=== PATIENT | female | born 1935 | race Caucasian/White ===

== ENCOUNTER 2021-09-17 15:32 | Outpatient (CLI) | payer MEDICARE, OTHER | END 2021-09-17 15:33 | disposition home or self-care (01) | LOC: SCSRAD 15:32 | PROVIDERS: ATTEND Family Medicine | DX: M25.561 Pain in right knee (principal); M25.562 Pain in left knee ==

== ENCOUNTER 2022-07-14 08:42 | Day surgery (SDC) | payer MEDICARE ==
[2022-07-13 13:03] VITALS: BMI 33.2
[2022-07-14 08:55] LABS: #Basophils 0.1 thou/uL (0.0-0.2); #Eosinphils 0.2 thou/uL (0.0-0.7); #Lymphocytes 1.4 thou/uL (1.20-3.40); #Monocytes 0.4 thou/uL (0.11-0.59); #Neutrophils 5.2 thou/uL (1.40-6.50); %Basophils 0.8 % (0.0-1.0); %Eosinophils 2.7 % (0.0-10.0); %Lymphocytes 18.7 % (21.0-51.0); %Monocytes 5.8 % (0.0-10.0); Hemoglobin 14.3 g/dL (12.0-16.0); Mean Corpuscular HGB CONC 32.5 g/dL (32.0-36.0); Mean Corpuscular Hemoglobin 31.1 pg (27.0-31.0); Mean Corpuscular Volume 95.8 fl (78.0-98.0); Mean Platelet Volume 6.1 fL (7.4-10.4); Platelet Count 309 10x3/uL (130-400); RBC Distribution Width 13.4 % (11.5-14.5); Red Blood Cell (RBC) Count 4.59 mill/uL (4.20-5.40); White Blood Cell (WBC) Count 7.2 10x3/uL (4.8-10.8)
[2022-07-14 09:32] LABS: INR-International Normal Ratio 0.9; Prothrombin Time 12.9 sec (12.0-14.7)
[2022-07-14 09:33] LABS: PTT 31.2 sec (22.9-36.1)
[2022-07-14 11:09] VITALS: BP 148/69; TEMP 98
== END 2022-07-14 13:15 | disposition home or self-care (01) ==
LOC: CT 08:42
PROVIDERS: ATTEND Internal Medicine Hematology & Oncology
PROC: 0QB33ZX Excision of Left Pelvic Bone, Percutaneous Approach, Diagnostic (ICD-10-PCS; principal; 2022-07-14)
DX: C79.51 Secondary malignant neoplasm of bone (principal); C50.919 Malignant neoplasm of unspecified site of unspecified female breast; I10 Essential (primary) hypertension; K21.9 Gastro-esophageal reflux disease without esophagitis; F03.90 Unspecified dementia, unspecified severity, without behavioral disturbance, psychotic disturbance, mood disturbance, and anxiety; E78.00 Pure hypercholesterolemia, unspecified; Z17.1 Estrogen receptor negative status [ER-]; Z79.890 Hormone replacement therapy; Z79.899 Other long term (current) drug therapy; Z88.5 Allergy status to narcotic agent; Z91.041 Radiographic dye allergy status
CPT/HCPCS: 20225; 77012; 85025; 85610; 85730; 88307; 88333; 88341; 88342; 88361

== ENCOUNTER 2022-11-08 08:30 | Outpatient (CLI) | payer MEDICARE, OTHER | END 2022-11-08 08:31 | disposition home or self-care (01) | LOC: SCSMRI 08:30 | PROVIDERS: ATTEND Family Medicine | DX: C79.51 Secondary malignant neoplasm of bone (principal) | CPT/HCPCS: 72146; 72148; 82565 ==

== ENCOUNTER 2022-11-13 23:14 | Inpatient (IN) | payer MEDICARE, OTHER ==
[2022-11-14] MEDS ORDERED: Acetaminophen 325 MG TAB PO PRN (00:51)
[2022-11-14 03:28] VITALS: BMI 25.9
[2022-11-14] MEDS: metroNIDAZOLE 500 MG in Premix Bag 1 BAG IVPB SCH ×3 (03:41→21:11)
[2022-11-14] MEDS: Sodium Chloride 0.9% 1,000 ML IV SCH ×3 (03:41→21:11)
[2022-11-14 03:55] LABS: #Lymphocytes 0.5 thou/uL (1.20-3.40); #Monocytes 0.1 thou/uL (0.11-0.59); #Neutrophils 7.3 thou/uL (1.40-6.50); %Eosinophils 0.3 % (0.0-10.0); %Lymphocytes 6.5 % (21.0-51.0); %Monocytes 1.2 % (0.0-10.0); %Neutrophils 91.9 % (42.0-75.0); Hemoglobin 14.8 g/dL (12.0-16.0); Mean Corpuscular Hemoglobin 29.6 pg (27.0-31.0); Mean Corpuscular Volume 92.6 fl (78.0-98.0); Mean Platelet Volume 7.4 fL (7.4-10.4); Platelet Count 187 10x3/uL (130-400); RBC Distribution Width 16.5 % (11.5-14.5); Red Blood Cell (RBC) Count 4.99 mill/uL (4.20-5.40)
[2022-11-14 04:22] LABS: ALT (SGPT) 33 U/L (8-55); AST (SGOT) 164 U/L (5-34); Albumin 3.8 g/dL (3.4-4.8); Alkaline Phosphatase 367 U/L (40-110); Anion Gap 21 mmol/L (10-20); BUN (Urea Nitrogen) 60 mg/dL (9.8-20.1); Bilirubin, Total 0.2 mg/dL (0.2-1.2); Calc. Creatinine Clearance 13 mL/min (70-130); Calcium 9.5 mg/dL (7.8-10.44); Carbon Dioxide 12 mmol/L (23-31); Chloride 108 mmol/L (98-107); Estimated GFR 14; Globulin 4.2 g/dL (2.4-3.5); Glucose 136 mg/dL (83-110); Potassium 3.7 mmol/L (3.5-5.1); Sodium 137 mmol/L (136-145)
[2022-11-14] MEDS: Ondansetron PF 4 MG/2 ML Vial IVP PRN (21:08)
[2022-11-14] MEDS: traMADol HCl 50 MG TAB PO PRN (21:10)
[2022-11-14] MEDS: Rosuvastatin 20 MG TAB PO SCH (21:14)
[2022-11-14] MEDS: Mirtazapine 15 MG TAB PO SCH (21:14)
[2022-11-14] MEDS: Latanoprost 0.005% Ophth Soln 2.5 ml Bottle EA EYE SCH (21:20)
[2022-11-14] MEDS: Timolol 0.25% Ophth Soln 5 ml Bottle EA EYE SCH (21:21)
[2022-11-15] MEDS: metroNIDAZOLE 500 MG in Premix Bag 1 BAG IVPB SCH ×3 (04:09→21:58)
[2022-11-15] MEDS: Sodium Chloride 0.9% 1,000 ML IV SCH ×3 (04:09→21:58)
[2022-11-15] MEDS: Levothyroxine Sodium 88 MCG TAB PO SCH (05:49)
[2022-11-15] MEDS: Anastrozole 1 MG TAB PO SCH (08:50)
[2022-11-15] MEDS: Sertraline 100 MG TAB PO SCH (08:52)
[2022-11-15] MEDS: Timolol 0.25% Ophth Soln 5 ml Bottle EA EYE SCH ×2 (08:52→21:57)
[2022-11-15] MEDS ORDERED: Memantine Hcl [Namenda Xr] 28 MG Cap.Spr.24 PO SCH (09:00)
[2022-11-15 11:35] LABS: #Lymphocytes 0.6 thou/uL (1.20-3.40); #Monocytes 0.8 thou/uL (0.11-0.59); #Neutrophils 6.9 thou/uL (1.40-6.50); %Basophils 0.2 % (0.0-1.0); %Eosinophils 0.6 % (0.0-10.0); %Lymphocytes 7.4 % (21.0-51.0); %Monocytes 9.1 % (0.0-10.0); %Neutrophils 82.7 % (42.0-75.0); Hemoglobin 12.9 g/dL (12.0-16.0); Mean Corpuscular HGB CONC 30.1 g/dL (32.0-36.0); Mean Corpuscular Hemoglobin 29.5 pg (27.0-31.0); Mean Corpuscular Volume 98.1 fl (78.0-98.0); Mean Platelet Volume 7.6 fL (7.4-10.4); Platelet Count 164 10x3/uL (130-400); RBC Distribution Width 16.7 % (11.5-14.5); Red Blood Cell (RBC) Count 4.37 mill/uL (4.20-5.40); White Blood Cell (WBC) Count 8.3 10x3/uL (4.8-10.8)
[2022-11-15 12:09] LABS: Anion Gap 14 mmol/L (10-20); BUN (Urea Nitrogen) 32 mg/dL (9.8-20.1); Calc. Creatinine Clearance 29 mL/min (70-130); Calcium 9.5 mg/dL (7.8-10.44); Carbon Dioxide 13 mmol/L (23-31); Chloride 118 mmol/L (98-107); Estimated GFR 37; Glucose 94 mg/dL (83-110); Sodium 142 mmol/L (136-145)
[2022-11-15] MEDS: traMADol HCl 50 MG TAB PO PRN (21:54)
[2022-11-15] MEDS: Ondansetron PF 4 MG/2 ML Vial IVP PRN (21:55)
[2022-11-15] MEDS: Mirtazapine 15 MG TAB PO SCH (21:56)
[2022-11-15] MEDS: Latanoprost 0.005% Ophth Soln 2.5 ml Bottle EA EYE SCH (21:58)
[2022-11-15] MEDS: Rosuvastatin 20 MG TAB PO SCH (22:02)
[2022-11-16] MEDS: Sodium Chloride 0.9% 1,000 ML IV SCH ×2 (04:34→15:09)
[2022-11-16 05:06] LABS: Anion Gap 11 mmol/L (10-20); BUN (Urea Nitrogen) 20 mg/dL (9.8-20.1); Calc. Creatinine Clearance 39 mL/min (70-130); Calcium 9.1 mg/dL (7.8-10.44); Carbon Dioxide 14 mmol/L (23-31); Chloride 118 mmol/L (98-107); Estimated GFR 53; Glucose 82 mg/dL (83-110); Potassium 2.7 mmol/L (3.5-5.1); Sodium 140 mmol/L (136-145)
[2022-11-16 05:09] LABS: #Lymphocytes 0.6 thou/uL (1.20-3.40); #Monocytes 0.7 thou/uL (0.11-0.59); #Neutrophils 6.2 thou/uL (1.40-6.50); %Eosinophils 0.6 % (0.0-10.0); %Lymphocytes 7.7 % (21.0-51.0); %Monocytes 9.3 % (0.0-10.0); %Neutrophils 82.3 % (42.0-75.0); Hemoglobin 11.6 g/dL (12.0-16.0); Mean Corpuscular HGB CONC 33.3 g/dL (32.0-36.0); Mean Corpuscular Hemoglobin 30.9 pg (27.0-31.0); Mean Corpuscular Volume 92.6 fl (78.0-98.0); Mean Platelet Volume 7.1 fL (7.4-10.4); Platelet Count 139 10x3/uL (130-400); RBC Distribution Width 16.3 % (11.5-14.5); Red Blood Cell (RBC) Count 3.76 mill/uL (4.20-5.40); White Blood Cell (WBC) Count 7.5 10x3/uL (4.8-10.8)
[2022-11-16] MEDS: metroNIDAZOLE 500 MG in Premix Bag 1 BAG IVPB SCH ×2 (05:26→15:33)
[2022-11-16] MEDS ORDERED: Ciprofloxacin Lactate/D5W 200 MG in Premix Bag 1 BAG IVPB SCH (06:00)
[2022-11-16] MEDS: Levothyroxine Sodium 88 MCG TAB PO SCH (06:19)
[2022-11-16] MEDS: Anastrozole 1 MG TAB PO SCH (09:04)
[2022-11-16] MEDS: Timolol 0.25% Ophth Soln 5 ml Bottle EA EYE SCH (09:04)
[2022-11-16] MEDS: Sertraline 100 MG TAB PO SCH (09:04)
[2022-11-16 18:35] VITALS: BP 138/68; TEMP 98.5
== END 2022-11-16 18:39 | disposition hospice, home (50) | DRG 682 ==
LOC: ERS 23:14 → 2NO 11-14 00:54
PROVIDERS: ADMIT Internal Medicine; ATTEND Internal Medicine
PROC: 8E0ZXY6 Isolation (ICD-10-PCS; principal; 2022-11-14)
DX: N17.9 Acute kidney failure, unspecified (principal); U07.1 COVID-19; C79.51 Secondary malignant neoplasm of bone; E87.20 Acidosis, unspecified; I95.1 Orthostatic hypotension; I10 Essential (primary) hypertension; E78.5 Hyperlipidemia, unspecified; E03.9 Hypothyroidism, unspecified; C50.919 Malignant neoplasm of unspecified site of unspecified female breast; F03.90 Unspecified dementia, unspecified severity, without behavioral disturbance, psychotic disturbance, mood disturbance, and anxiety; E86.0 Dehydration; E78.00 Pure hypercholesterolemia, unspecified; K44.9 Diaphragmatic hernia without obstruction or gangrene; Z90.710 Acquired absence of both cervix and uterus; Z98.890 Other specified postprocedural states; Z88.5 Allergy status to narcotic agent; Z88.8 Allergy status to other drugs, medicaments and biological substances; Z79.899 Other long term (current) drug therapy
CPT/HCPCS: 36415; 51701; 71045; 74176; 80048; 80053; 81003; 81015; 82274; 82550; 83605; 83690; 83880; 84484; 85025; 87040; 87086; 93005; 96360; 96361; 96365; 96366; 96375; J0692; J0744; J1100; J2405; J3370; J7050